=== PATIENT | male | born 1940 | race Caucasian/White ===

== ENCOUNTER 2019-05-13 02:07 | Inpatient (IN) | payer OTHER, BC ==
[~2019-05-13] VITALS: Ht 170.2 cm; Wt 93.4 kg
[2019-05-13 02:07] VITALS: BP_SYST 136
--- NOTE | 2019-05-13 02:10 | NUR ---
Patient to ER bed 2 to gown for evaluation. Side rails up.
[2019-05-13] MEDS ORDERED: IPRATROPIUM/ALBUTEROL SULFATE 3 ML AMPUL.NEB (DUONEB) INH ONE (02:15)
[2019-05-13] MEDS ORDERED: NACL 0.9% 1,000 ML IV ONE (02:15)
--- NOTE | 2019-05-13 02:20 | NUR ---
AWAKE , ALERT. PT STATES THAT HE HAS BEEN HAVING INCREASE O SHORTNESS OF BREATH X 2DAYS. HE TAKES O2 AT HOME 2L/MIN. OCCASIONAL MOIST PRODUCTIVE COUGH NOTED. ACCOMPANIED BY .
[2019-05-13 02:50] LABS: EOSINOPHILS # (AUTO) 0.1 K/uL (0.0-0.4); EOSINOPHILS % (AUTO) 0.5 % (0.0-4.0); HEMATOCRIT 49.4 % (36-54); MEAN CORPUSCULAR HEMOGLOBIN 32 pg (27-31); MEAN CORPUSCULAR HGB CONC 34 % (32-36); MEAN CORPUSCULAR VOLUME 94 fL (79.0-98.0)
[2019-05-13 02:54] LABS: ANION GAP 6 (5-15); CHLORIDE 103 mmol/L (98-107); CREATININE 1.21 mg/dL (0.55-1.30); GLUCOSE 125 mg/dL (70-99); POTASSIUM 3.7 mmol/L (3.5-5.1); SODIUM SERUM 135 mmol/L (136-145); UREA NITROGEN, BLOOD 26 mg/dL (8-21)
[2019-05-13 02:58] LABS: ALANINE AMINOTRANSFERASE 29 U/L (12-78); ALBUMIN 3.3 g/dL (3.4-4.8); ASPARTATE AMINOTRANSFERASE 19 U/L (10-37); TOTAL BILIRUBIN 1.4 mg/dL (0.0-1.0)
[2019-05-13] MEDS ORDERED: ACETAMINOPHEN 500 MG TABLET PO ONE (03:00)
[2019-05-13] MEDS ORDERED: LEVOFLOXACIN 500 MG/D5W 100 ML IV ONE (03:00)
--- NOTE | 2019-05-13 03:00 | NUR ---
VS: 135/92, 100, 94%, 17
[2019-05-13 03:04] LABS: HEMOGLOBIN 16.9 g/dL (14.0-18.0); RED BLOOD CELL COUNT(AUTO) 5.24 MIL/uL (4.2-6.2)
[2019-05-13 03:05] LABS: BASOPHILS % (AUTO) 0.2 % (0.0-2.0); LYMPHOCYTES # (AUTO) 1.5 K/uL (1.0-5.5); LYMPHOCYTES % (AUTO) 10.2 % (20.5-51.5); MONOCYTES % (AUTO) 6.3 % (1.7-9.3); NEUTROPHILS # (AUTO) 12.4 K/uL (1.8-7.7); NEUTROPHILS % (AUTO) 82.8 % (40.0-70.0); PLATELET COUNT (AUTO) 217 K/uL (130-430); RED CELL DISTRIBUTION WIDTH 13.5 % (9.0-15.0)
--- NOTE | 2019-05-13 03:29 | NUR ---
Patient will be admitted to care of Dr. Meraz. Admitted to Tele unit. Pt is an ER hold till further notice. Belongings list completed. Complete and up to date summary report printed. SBAR report to be given at bedside with opportunity for questions.
[2019-05-13] MEDS ORDERED: ACETAMINOPHEN 325 MG TABLET PO PRN (03:30)
[2019-05-13] MEDS ORDERED: NACL 0.9% 1,000 ML IV SCH (04:00)
--- NOTE | 2019-05-13 04:00 | NUR ---
VS: 124/65, 86, 21, 93%.
--- NOTE | 2019-05-13 05:00 | NUR ---
RESTING. DENIES DISTRESS. ATTEMTED TO URINATE, STOOD AT [facility] SIDE. UNABLE TO URINATE. BACK TO BED WITHOUT INCIDENCE.
--- NOTE | 2019-05-13 05:01 | NUR ---
VS: 99.3, 110/70, 88, 98%, 22.
[2019-05-13] MEDS ORDERED: methylPREDNISolone SOD SUCC/PF 62.5 MG/ML VIAL IVP SCH (06:00)
[2019-05-13] MEDS: IPRATROPIUM/ALBUTEROL SULFATE 3 ML AMPUL.NEB (DUONEB) INH SCH ×3 (06:42→19:50)
--- NOTE | 2019-05-13 07:15 | NUR ---
Report from delonte CHOWDARY
--- NOTE | 2019-05-13 07:45 | NUR ---
Respiratory at bedside
--- NOTE | 2019-05-13 09:10 | NUR ---
Patient will be admitted to care of Dr. Meraz. Admitted to tele unit. Will go to [id number] . Belongings list completed. Complete and up to date summary report printed. SBAR report to be given at bedside with opportunity for questions. Transfer to Tele via ACLS protocol. Licensed nurse present. IV present no signs or symptoms of infiltration.
--- NOTE | 2019-05-13 09:27 | NUR ---
ADMISSION NOTE Received patient from ER via darrian, received report from RANDY CHOWDARY. Patient admitted with diagnosis of PNEUMONIA. Patient oriented to hospital routine, call light, toileting and safety-patient verbalized understanding.
--- NOTE | 2019-05-13 09:40 | NUR ---
Pulmo consult called: for Dr. Menendez, regarding pneumonia, ordered by Dr. Meraz, spoke with Christine.
[2019-05-13 09:41] VITALS: BP_SYST 149
[2019-05-13] MEDS ORDERED: LISINOPRIL 5 MG TABLET PO ONE (10:15)
[2019-05-13] MEDS ORDERED: METOPROLOL TARTRATE 25 MG TABLET PO ONE (10:15)
[2019-05-13] MEDS ORDERED: POTASSIUM CHLORIDE 20 MEQ TAB.PRT.SR PO ONE (10:15)
[2019-05-13] MEDS ORDERED: IPRATROPIUM/ALBUTEROL SULFATE 3 ML AMPUL.NEB (DUONEB) INH PRN (10:15)
[2019-05-13] MEDS ORDERED: FUROSEMIDE 20 MG/2 ML VIAL IVP ONE (10:15)
[2019-05-13 10:17] LABS: BILIRUBIN,URINE NEGATIVE (NEGATIVE); BLOOD, URINE NEGATIVE (NEGATIVE); CLARITY/URINE CLEAR (CLEAR); COLOR,URINE YELLOW (YELLOW); GLUCOSE,URINE NEGATIVE (NEGATIVE); KETONES,URINE NEGATIVE (NEGATIVE); LEUKOCYTE ESTERASE ,URINE TRACE (NEGATIVE); NITRITE, URINE NEGATIVE (NEGATIVE); PH,URINE 5.5 (5.0-8.0); PROTEIN URINE TRACE (NEGATIVE)
--- NOTE | 2019-05-13 10:22 | NUR ---
Cardiac consult called: for Dr. Rosario, regarding CHF, ordered by Dr. Meraz, spoke with
[2019-05-13] MEDS ORDERED: TAMSULOSIN HCL 0.4 MG CAP PO ONE (10:45)
[2019-05-13] MEDS ORDERED: OSELTAMIVIR PHOSPHATE 75 MG CAPSULE PO ONE (10:45)
--- NOTE | 2019-05-13 10:50 | NUR ---
Opening notes, Received pt from, ER. pt is aao x3, name, place, event. pt is legally blind , only able to see movement on tv screen. pt kept on Droplet Isolation for INfluenze B. Dr Meraz was here and seen patient. pt assist to bathroom to void and back to bed, pt needs assist to ambulate. pt educated on the use of call light and tv and bed control. encouraged to call for assistance to bath room. urinal provided. safety precaution in place. yellow socks , bed alarm on. will cont to monitor.
[2019-05-13 10:51] LABS: BACTERIA,URINE FEW /HPF (None Seen); MUCUS,URINE 1+ /LPF (None Seen); RBC,URINE 0-3 /HPF (0-3); YEAST,URINE Few /HPF (None Seen)
[2019-05-13 11:02] LABS: EOSINOPHILS % (AUTO) 0.1 % (0.0-4.0); HEMATOCRIT 48.7 % (36-54); HEMOGLOBIN 16.5 g/dL (14.0-18.0); LYMPHOCYTES # (AUTO) 0.4 K/uL (1.0-5.5); MEAN CORPUSCULAR HEMOGLOBIN 32 pg (27-31); MEAN CORPUSCULAR HGB CONC 34 % (32-36); MEAN CORPUSCULAR VOLUME 95 fL (79.0-98.0); MONOCYTES # (AUTO) 0.2 K/uL (0.0-1.0); MONOCYTES % (AUTO) 1.7 % (1.7-9.3); NEUTROPHILS % (AUTO) 95.2 % (40.0-70.0); PLATELET COUNT (AUTO) 197 K/uL (130-430); RED BLOOD CELL COUNT(AUTO) 5.15 MIL/uL (4.2-6.2); RED CELL DISTRIBUTION WIDTH 13.4 % (9.0-15.0); WHITE BLOOD COUNT (AUTO) 14.7 K/uL (4.8-10.8)
[2019-05-13 11:14] LABS: ANION GAP 7 (5-15); CALCIUM 8.6 mg/dL (8.4-11.0); CHLORIDE 103 mmol/L (98-107); GLUCOSE 200 mg/dL (70-99); POTASSIUM 4.5 mmol/L (3.5-5.1); SODIUM SERUM 137 mmol/L (136-145); UREA NITROGEN, BLOOD 24 mg/dL (8-21)
[2019-05-13] MEDS: LEVOFLOXACIN 500 MG/D5W 100 ML IV SCH (11:26)
--- NOTE | 2019-05-13 11:34 | NUR ---
pt am meds offered and taken. pt able to swallow pills whole but one or 2 at a time.
[2019-05-13 11:54] VITALS: BP_SYST 149
--- NOTE | 2019-05-13 12:00 | NUR ---
pt assisted by enmanuel francisco to bathroom.
[2019-05-13 12:38] VITALS: BP_SYST 160
--- NOTE | 2019-05-13 14:52 | NUR ---
PT IN BED, RESTING, NO C/O PAIN , NO SOB. PT VOIDED USING THE URINAL. WILL CONTINUE TO MONITOR.
[2019-05-13 16:31] VITALS: BP_SYST 154
--- NOTE | 2019-05-13 16:58 | NUR ---
PT IN BED, RESTING, EYES CLOSED. NO S/S OF PAIN, NO RESP DISTRESS.
--- NOTE | 2019-05-13 17:38 | NUR ---
dr guevara here and seen and spoke with pt at bedside.
--- NOTE | 2019-05-13 18:19 | NUR ---
CLOSING NOTES, PATIENT BP SLIGHTLY ELEVATED, PT ON BP MEDICATIONS, PT KEPT ON DROPLET PRECAUTION. PT ASSISTED TO THE BATHROOM , PT IS STANDBY ASSIST. WITH MIN ASSIST FROM BED TO STANDING. ALL MEDS OFFERED AND TAKEN, ALL NEEDS ATTENDED TO. WILL ENDORSE TO NIGHT NURSE.
--- NOTE | 2019-05-13 19:30 | NUR ---
Opening notes, Received care of pt and sbar report. Pt is aao x3, name, place, event. Pt is legally blind, safety precautions discussed. Pt kept on Droplet Isolation for Influenza B. Pt educated on the use of call light and tv and bed control. Pt encouraged to call for assistance to bath room. urinal provided. Safety precautions are in place. yellow socks , bed alarm on, call light is with pt. will cont to monitor.
[2019-05-13 20:00] VITALS: BP_SYST 147
[2019-05-13] MEDS: OSELTAMIVIR PHOSPHATE 75 MG CAPSULE PO SCH (20:34)
[2019-05-13] MEDS: METOPROLOL TARTRATE 25 MG TABLET PO SCH (20:37)
[2019-05-13] MEDS: APIXABAN 2.5 MG TABLET PO SCH (20:38)
--- NOTE | 2019-05-13 20:38 | NUR ---
MEDICATION PASS SCHEDULED MEDICATIONS ADMINISTERED ORDERED. MEDICATION ACTIONS AND POTENTIAL SIDE EFFECTS DISCUSSED. PT VERBALIZED UNDERSTANDING. VSS. NO S/S OF ACUTE DISTRESS. SAFETY AND ISOLATION PRECAUTIONS MAINTAINED. WILL MONITOR.
[2019-05-13] MEDS ORDERED: FUROSEMIDE 20 MG TABLET PO SCH (21:00)
--- NOTE | 2019-05-13 22:30 | NUR ---
AMBULATED TO RESTROOM WITH PRIMARY NURSE ASSIST. PT NOTED TO HAVE STEADY GAIT. PT RETURNED TO BED WITH NO S/S OF ACUTE DISTRESS. SAFETY PRECAUTIONS MAINTAINED. ISOLATION PRECAUTIONS ARE IN PLACE. WILL MONITOR.
[2019-05-14 00:30] VITALS: BP_SYST 144
--- NOTE | 2019-05-14 00:30 | NUR ---
RESTING PT RESTING IN BED, NO S/S OF ACUTE DISTRESS, BREATHING IS UNLABORED TO O2 VIA NC AT 2L. NO SIGN OF PAIN OR DISCOMFORT. SAFETY AND FALL PRECAUTIONS ARE IN PLACE. DROPLET PRECAUTIONS MAINTAINED. WILL MONITOR.
[2019-05-14] MEDS: IPRATROPIUM/ALBUTEROL SULFATE 3 ML AMPUL.NEB (DUONEB) INH SCH ×4 (00:41→19:32)
--- NOTE | 2019-05-14 02:45 | NUR ---
RN ROUNDS: PT RESTING IN BED, NO S/S OF ACUTE DISTRESS, BREATHING IS UNLABORED TO O2 VIA NC AT 2L. NO SIGN OF PAIN OR DISCOMFORT. SAFETY AND FALL PRECAUTIONS ARE IN PLACE. DROPLET PRECAUTIONS MAINTAINED. WILL MONITOR.
--- NOTE | 2019-05-14 04:22 | NUR ---
ROUNDS: PT RESTING IN BED, NO S/S OF ACUTE DISTRESS, BREATHING IS UNLABORED TO O2 VIA NC AT 2L. NO SIGN OF PAIN OR DISCOMFORT AT THIS TIME. SAFETY AND FALL PRECAUTIONS ARE IN PLACE. DROPLET PRECAUTIONS MAINTAINED. WILL MONITOR.
[2019-05-14 06:28] LABS: HEMATOCRIT 45.7 % (36-54); HEMOGLOBIN 15.3 g/dL (14.0-18.0); LYMPHOCYTES # (AUTO) 1.1 K/uL (1.0-5.5); LYMPHOCYTES % (AUTO) 8.4 % (20.5-51.5); MEAN CORPUSCULAR HEMOGLOBIN 32 pg (27-31); MEAN CORPUSCULAR HGB CONC 34 % (32-36); MEAN CORPUSCULAR VOLUME 94 fL (79.0-98.0); MONOCYTES # (AUTO) 0.6 K/uL (0.0-1.0); MONOCYTES % (AUTO) 4.8 % (1.7-9.3); NEUTROPHILS # (AUTO) 11.2 K/uL (1.8-7.7); NEUTROPHILS % (AUTO) 86.8 % (40.0-70.0); PLATELET COUNT (AUTO) 213 K/uL (130-430); RED BLOOD CELL COUNT(AUTO) 4.86 MIL/uL (4.2-6.2); RED CELL DISTRIBUTION WIDTH 13.3 % (9.0-15.0); WHITE BLOOD COUNT (AUTO) 12.9 K/uL (4.8-10.8)
--- NOTE | 2019-05-14 06:30 | NUR ---
Closing notes, Pt is aao x3, name, place, event. Pt is legally blind, safety precautions discussed. Pt kept on Droplet Isolation for Influenza B. Pt educated on the use of call light and tv and bed control. Pt encouraged to call for assistance to bath room. urinal provided. Safety precautions are in place. yellow socks , bed alarm on, call light is with pt. Will endorse to day shift RN.
[2019-05-14 06:49] LABS: ANION GAP 7 (5-15); CALCIUM 8.3 mg/dL (8.4-11.0); CHLORIDE 106 mmol/L (98-107); CREATININE 1.18 mg/dL (0.55-1.30); GLUCOSE 156 mg/dL (70-99); POTASSIUM 3.8 mmol/L (3.5-5.1); SODIUM SERUM 139 mmol/L (136-145); UREA NITROGEN, BLOOD 29 mg/dL (8-21)
--- NOTE | 2019-05-14 07:45 | NUR ---
am notes received pt in bed . a/ox4. pt is legally blind. denies any pain or sob at this time. res even and unlabored. vitals stable. call light within reach encourged to use call light . pt verbalized understanding. safety and fall precautions in place. needs attended. will continue to monitor
[2019-05-14 07:58] VITALS: BP_SYST 149
[2019-05-14] MEDS ORDERED: FUROSEMIDE 20 MG/2 ML VIAL IVP SCH (09:00)
[2019-05-14] MEDS: OSELTAMIVIR PHOSPHATE 75 MG CAPSULE PO SCH (09:02)
[2019-05-14] MEDS: TAMSULOSIN HCL 0.4 MG CAP PO SCH (09:02)
[2019-05-14] MEDS: LISINOPRIL 5 MG TABLET PO SCH (09:02)
[2019-05-14] MEDS: POTASSIUM CHLORIDE 20 MEQ TAB.PRT.SR PO SCH (09:02)
[2019-05-14] MEDS: METOPROLOL TARTRATE 25 MG TABLET PO SCH (09:03)
[2019-05-14] MEDS: APIXABAN 2.5 MG TABLET PO SCH (09:05)
[2019-05-14] MEDS: LEVOFLOXACIN 500 MG/D5W 100 ML IV SCH (11:31)
[2019-05-14 11:40] VITALS: BP_SYST 147
--- NOTE | 2019-05-14 11:42 | NUR ---
rounds pt resting comfortably not in acute distress. vitals stable. needs attended. will continue to monitor
[2019-05-14] MEDS ORDERED: PREDNISONE 20 MG TABLET PO ONE (14:30)
[2019-05-14 16:00] VITALS: BP_SYST 145
--- NOTE | 2019-05-14 16:00 | NUR ---
rounds pt stable not in acute distress. vitals stable. need attended kept comfortable
--- NOTE | 2019-05-14 19:28 | NUR ---
closing notes pt resting comfortably. not in acute distress. .no s/s of pain or distress noted.report given to night nurse
[2019-05-15] MEDS: APIXABAN 2.5 MG TABLET PO SCH ×3 (00:44→22:44)
[2019-05-15] MEDS: METOPROLOL TARTRATE 25 MG TABLET PO SCH ×2 (00:45→10:07)
[2019-05-15] MEDS: IPRATROPIUM/ALBUTEROL SULFATE 3 ML AMPUL.NEB (DUONEB) INH SCH ×4 (00:45→20:30)
[2019-05-15] MEDS: PREDNISONE 20 MG TABLET PO SCH ×3 (00:46→22:46)
[2019-05-15] MEDS: OSELTAMIVIR PHOSPHATE 75 MG CAPSULE PO SCH ×3 (00:46→22:46)
[2019-05-15 00:48] VITALS: BP_SYST 149
[2019-05-15 07:21] LABS: BASOPHILS % (AUTO) 0.1 % (0.0-2.0); HEMATOCRIT 48.4 % (36-54); HEMOGLOBIN 16.1 g/dL (14.0-18.0); LYMPHOCYTES # (AUTO) 1.2 K/uL (1.0-5.5); LYMPHOCYTES % (AUTO) 7.6 % (20.5-51.5); MEAN CORPUSCULAR HEMOGLOBIN 32 pg (27-31); MEAN CORPUSCULAR HGB CONC 33 % (32-36); MEAN CORPUSCULAR VOLUME 95 fL (79.0-98.0); MONOCYTES # (AUTO) 0.7 K/uL (0.0-1.0); MONOCYTES % (AUTO) 4.7 % (1.7-9.3); NEUTROPHILS # (AUTO) 13.2 K/uL (1.8-7.7); NEUTROPHILS % (AUTO) 87.6 % (40.0-70.0); PLATELET COUNT (AUTO) 262 K/uL (130-430); RED BLOOD CELL COUNT(AUTO) 5.11 MIL/uL (4.2-6.2); RED CELL DISTRIBUTION WIDTH 13.6 % (9.0-15.0); WHITE BLOOD COUNT (AUTO) 15.1 K/uL (4.8-10.8)
[2019-05-15 07:55] LABS: ANION GAP 9 (5-15); CALCIUM 8.9 mg/dL (8.4-11.0); CHLORIDE 104 mmol/L (98-107); CREATININE 1.21 mg/dL (0.55-1.30); GLUCOSE 140 mg/dL (70-99); POTASSIUM 4.4 mmol/L (3.5-5.1); SODIUM SERUM 139 mmol/L (136-145); UREA NITROGEN, BLOOD 34 mg/dL (8-21)
[2019-05-15 08:00] VITALS: BP_SYST 145
[2019-05-15 09:39] VITALS: BP_SYST 149
[2019-05-15] MEDS: POTASSIUM CHLORIDE 20 MEQ TAB.PRT.SR PO SCH (10:06)
[2019-05-15] MEDS: TAMSULOSIN HCL 0.4 MG CAP PO SCH (10:06)
[2019-05-15] MEDS: LISINOPRIL 5 MG TABLET PO SCH (10:08)
--- NOTE | 2019-05-15 10:33 | NUR ---
Nutrition Update Martin Scale 18 noted. Pt admitted for pneumonia. Diet: regular BMI: 32.4 kg/m2 RD to follow per nutrition care standards.
--- NOTE | 2019-05-15 11:52 | NUR ---
CONSULTATION PAGED/CALLED Reason for Consultation: SEPSIS Person Who was Notified: SPOKE WITH KALYAN FROM OFFICE Consulting Physician: Drive In Theater Attendant Specialty: ID Ordering Physician:
[2019-05-15] MEDS: LEVOFLOXACIN 500 MG/D5W 100 ML IV SCH (13:59)
--- NOTE | 2019-05-15 14:04 | NUR ---
P.T. NOTES AFTER MULTIPLE ATTEMPTS PATIENT REFUSED TO BE SEEN BY P.T., STATES NOT FEELING WELL TODAY AND WOULD LIKE TO GET SOME REST.
[2019-05-15] MEDS ORDERED: FLUCONAZOLE 100 mg/ NS 50 ML IV SCH (18:30)
[2019-05-15 20:00] VITALS: BP_SYST 145
[2019-05-15] MEDS: METOPROLOL TARTRATE 50 MG TABLET PO SCH (22:46)
[2019-05-15] MEDS: AZITHROMYCIN 500 MG in NS 250 ML IV SCH (22:48)
[2019-05-16] MEDS: IPRATROPIUM/ALBUTEROL SULFATE 3 ML AMPUL.NEB (DUONEB) INH SCH ×4 (01:26→19:05)
[2019-05-16 02:19] VITALS: BP_SYST 159
--- NOTE | 2019-05-16 05:26 | NUR ---
recieved report @ the start of shift, patient, a/o/x/4, verbally responsive, respirations even and unlabored, noted cough, non productive,HOB erlevated, sob on excertion,, droplet isolation for flu A&B,, able to stand @ bedside to urinate in urinal, urine clear yellow, rested quietly during the shift, @ bedside, will continue to monitor closely for any resp/cardiac distress
--- NOTE | 2019-05-16 08:00 | NUR ---
received awake and in no c/o discomfort.vss resp even and unlabored.remains on droplet iso uses urinal.taking diet well.continue to monitor call potter in place
[2019-05-16] MEDS: METOPROLOL TARTRATE 50 MG TABLET PO SCH ×2 (09:00→21:21)
[2019-05-16] MEDS: TAMSULOSIN HCL 0.4 MG CAP PO SCH (09:00)
[2019-05-16] MEDS: LISINOPRIL 5 MG TABLET PO SCH (09:01)
[2019-05-16] MEDS: POTASSIUM CHLORIDE 20 MEQ TAB.PRT.SR PO SCH (09:01)
[2019-05-16] MEDS: PREDNISONE 20 MG TABLET PO SCH ×2 (09:01→21:22)
[2019-05-16] MEDS: OSELTAMIVIR PHOSPHATE 75 MG CAPSULE PO SCH ×2 (09:01→21:22)
[2019-05-16] MEDS: APIXABAN 2.5 MG TABLET PO SCH (09:04)
[2019-05-16 09:52] VITALS: BP_SYST 124
[2019-05-16 12:39] VITALS: BP_SYST 119
--- NOTE | 2019-05-16 13:31 | NUR ---
Discharge Plan Assessment done MOLD DESIGN ENGINEER met with patient and at bedside. Patient is mostly independent at home, but is blind so needs assistance outside the home. Patient's stated she wants to participate in all decision making. She is awaiting a call from Dr Meraz. She agrees with acute rehab ([facility]) or SNF for a short time to improve patient's strength or possible IV medications. Wants to discuss with doctor further. Agreeable also to home health. Will await further orders and remain available. Discussed with VON Cornejo and ZOILA Coordinator Kaitlyn.
--- NOTE | 2019-05-16 13:45 | NUR ---
DC Planning: s/w with pt's spouse/Vanessa # [phone] regarding dcp to snf vs home with HH. Vanessa requested snf in [facility] and given choices: [facility] [place]. She also agreed with any HH agency Per Vanessa, the pt will be home alone for 6 hrs/day while she is working. The pt is able to go up 8 steps to 2nd floor bed room. [facility] provides oxygen concentrator which the pt uses only at night and a portable tank (not using for many months). The O2 concentrator set up in between up stair and down stair bed room with 50 feet oxygen cannula lines to both locations. The pt already has FWW and a cane. He will need a nebulizer machine upon discharge.
[2019-05-16] MEDS: FLUCONAZOLE 100 mg/ NS 50 ML IV SCH (14:58)
[2019-05-16] MEDS: D5LR 1,000 ML IV SCH (14:58)
[2019-05-16 16:06] VITALS: BP_SYST 116
--- NOTE | 2019-05-16 16:44 | NUR ---
DC Planning: [facility]n: Steven fax# [phone], tel [phone] . Per Steven, he will provide the nebulizer machine as long as pt and family can provide own prescriptions. Steven will call Ksenia to arrange the machine. DCP/ please check with Steven to confirm the nebulizer arrangement and whether [facility] is accepting the pt. Addendum: 05/16/19 at 1713 by Chantal Spence RN >> Called back : per Steven the pt is accepted. DCP please notify him time pt is dc home. Addendum: 05/16/19 at 1718 by Chantal Spence RN Steven tel # [phone]
--- NOTE | 2019-05-16 17:22 | NUR ---
noted to have red urine in urinal with no clots dr allison musa.no c/o pain vss resp even and unlabored.up amb in room will continue to monitor.
--- NOTE | 2019-05-16 17:45 | NUR ---
dr cooper returned call and ordered pt to start on tele and labs for am and stop blood thinners. and tele applied
--- NOTE | 2019-05-16 18:28 | NUR ---
tele controlled afib no c/o pain taking diet well and voiding still light red color.continue to monitor call potter in place.
--- NOTE | 2019-05-16 19:13 | NUR ---
report to night filler fauzia beavers
--- NOTE | 2019-05-16 19:20 | NUR ---
OPENING NOTES Receive report from morning shift nurse. Patient AOx4, at bed side. No signs of respiratory distress noted. Denies pain and discomfort at this time. HOB raised. Urinal at bedside, clean and empty. On 2L of oxygen via Nasal cannula, attached and secured. IV antibiotic infusing well, patency noted. Call light within reach, patient educated to use call light when assistance is needed, patient verbalized understanding. Bed locked and in lowest position. bed alarm on. Safety precautions in place. Will continue to monitor patient.
[2019-05-16] MEDS: AZITHROMYCIN 500 MG in NS 250 ML IV SCH (19:23)
--- NOTE | 2019-05-16 21:22 | NUR ---
MED PASS Due medication given at this time. No signs of respiratory distress noted. Denies pain and discomfort at this time. Safety precautions in place. Will continue to monitor.
[2019-05-16 21:45] VITALS: BP_SYST 152
--- NOTE | 2019-05-16 23:30 | NUR ---
RN ROUNDS PATIENT ASLEEP AT THIS TIME. NO SIGNS OF RESPIRATORY DISTRESS AND DISCOMFORT NOTED. BREATHING EVEN AND UNLABORED. ON 2L OF OXYGEN VIA NASAL CANNULA, ATTACHED AND SECURED. HOB RAISED. CALL LIGHT WITHIN REACH . SAFETY PRECAUTIONS IN PLACE. WILL CONTINUE TO MONITOR.
[2019-05-17 00:59] VITALS: BP_SYST 140
[2019-05-17] MEDS: IPRATROPIUM/ALBUTEROL SULFATE 3 ML AMPUL.NEB (DUONEB) INH SCH ×3 (01:10→13:50)
--- NOTE | 2019-05-17 02:05 | NUR ---
NOTE Patient awake at this time. No signs of respiratory distress noted. Denies pain and discomfort at this time. Bleeding in urine, noted. MD aware since morning. Safety precautions in place. Will continue to monitor.
--- NOTE | 2019-05-17 04:30 | NUR ---
RN ROUNDS PATIENT ASLEEP AT THIS TIME. NO SIGNS OF RESPIRATORY DISTRESS AND DISCOMFORT NOTED. BREATHING EVEN AND UNLABORED. HOB RAISED. ON 2L OF OXYGEN VIA NASAL, CANNULA, ATTACHED AND SECURED. SAFETY PRECAUTIONS IN PLACE. WILL CONTINUE TO MONITOR.
[2019-05-17] MEDS: D5LR 1,000 ML IV SCH (06:21)
--- NOTE | 2019-05-17 06:58 | NUR ---
CLOSING NOTES PATIENT AWAKE AOX3. NO SIGNS OF RESPIRATORY DISTRESS AND DISCOMFORT NOTED. BREATHING EVEN AND UNLABORED. ON 2L OF OXYGEN VIA NASAL CANNULA. IVF INFUSING WELL,PATENCY NOTED. CALL LIGHT WITHIN REACH. SAFETY PRECAUTIONS IN PLACE. BED LOCKED AND LOWEST POSITION. ALL NEEDS MET THROUGHOUT THE SHIFT. WILL CONTINUE TO MONITOR UNTIL ENDORSE TO ONCOMING SHIFT NURSE FOR CONTINUITY OF CARE.
[2019-05-17 07:32] VITALS: BP_SYST 142
--- NOTE | 2019-05-17 07:32 | NUR ---
INITIAL ROUNDS Received pt AAOx3, no s/s resp distress, no c/o pain or discomfort. Pt on Droplets precautions for Influenza B +. IVF infusing well at ordered rate with no s/s infiltration to site. Plan of care for the day reviewed with pt-pt verbalized his understanding. Pain management, disease process, skin and safety discussed with pt-teach back done. Side rails up x3, bed alarm on and room across form nursing station for safety. Call light within reach.
[2019-05-17 07:55] LABS: ALANINE AMINOTRANSFERASE 73 U/L (12-78); ANION GAP 7 (5-15); ASPARTATE AMINOTRANSFERASE 28 U/L (10-37); CALCIUM 8.7 mg/dL (8.4-11.0); CHLORIDE 102 mmol/L (98-107); CREATININE 1.11 mg/dL (0.55-1.30); GLUCOSE 132 mg/dL (70-99); POTASSIUM 4.7 mmol/L (3.5-5.1); SODIUM SERUM 138 mmol/L (136-145); TOTAL BILIRUBIN 0.7 mg/dL (0.0-1.0); UREA NITROGEN, BLOOD 29 mg/dL (8-21)
--- NOTE | 2019-05-17 07:55 | NUR ---
PHYSICAL THERAPY CO-SIGN The Physical Therapy Progress Notes documented by Street Light Servicer Helper have been reviewed. Reviewed/Co-Signed by: Silvano Timmons PT Documentation Done by: Raul Hastings PTA Addendum: 05/17/19 at 0756 by Silvano Timmons PT Amended: Links added.
[2019-05-17 08:00] LABS: HEMATOCRIT 50.6 % (36-54); HEMOGLOBIN 16.9 g/dL (14.0-18.0); MEAN CORPUSCULAR HEMOGLOBIN 32 pg (27-31); MEAN CORPUSCULAR HGB CONC 33 % (32-36); MEAN CORPUSCULAR VOLUME 95 fL (79.0-98.0); PLATELET COUNT (AUTO) 278 K/uL (130-430); RED CELL DISTRIBUTION WIDTH 13.6 % (9.0-15.0)
[2019-05-17 08:51] LABS: ATYPICAL LYMPHOCYTES % 0 % (0-0); BAND % (MANUAL) 2 % (0-6); BASOPHILS % (MANUAL) 0 % (0-2); EOSINOPHILS % (MANUAL) 0 % (0-7); LYMPHOCYTES % (MANUAL) 15 % (20-46); MONOCYTES % (MANUAL) 8 % (0-11)
[2019-05-17] MEDS: PREDNISONE 20 MG TABLET PO SCH (09:17)
[2019-05-17] MEDS: LISINOPRIL 5 MG TABLET PO SCH (09:17)
[2019-05-17] MEDS: POTASSIUM CHLORIDE 20 MEQ TAB.PRT.SR PO SCH (09:18)
[2019-05-17] MEDS: METOPROLOL TARTRATE 50 MG TABLET PO SCH (09:18)
[2019-05-17] MEDS: TAMSULOSIN HCL 0.4 MG CAP PO SCH (09:18)
[2019-05-17] MEDS: OSELTAMIVIR PHOSPHATE 75 MG CAPSULE PO SCH (09:18)
--- NOTE | 2019-05-17 11:02 | NUR ---
ROUNDS/ Pt sitting up in bed with no s/s resp distress, no c/o pain or discomfort. Pt's at bedside and stated she wants Dr. Meraz to call her with any new updates. No changes, call light within reach.
--- NOTE | 2019-05-17 11:21 | NUR ---
Discharge Planning: ALYSON spoke to Silvia at [facility] [phone] Home Health accepted. Per [facility] sent doctor form fro nebulizer, and CAROL walker will be ordered. ZOILAP to follow up. Addendum: 05/17/19 at 1556 by Kaitlyn Villalobos DP ALYSON spoke to Silvia at [facility] [phone] [facility] Nebulizer, FWW and bedside commode will be delivered to home tomorrow per request. ZOILAP made nurse aware.
--- NOTE | 2019-05-17 12:14 | NUR ---
Discharge Planning Spoke with patient's this am. HH and DME are being arranged. She will go to work and await information on discharge. Later spoke with Dr Meraz, who will discharge patient home today. Patient may have difficulty making it up the stairs. Phoned , , and left a voicemail about discharge and possible solution to the stairs in the home, ie [facility] [employer] loan of a hospital bed or lift to go up the stairs. Addendum: 05/17/19 at 1243 by Annabel Bradford LCSW returned the call. Told her she can scrap picker patient any time today. She stated she will cope with patient with no hospital bed for now. Will have another plan if there is a retirement situation. She had a question about the hematuria. Asked Gayle CHOWDARY to call to discuss. Kaitlyn, Field Support Engineer, stated all home health ([facility]) and DME(nebulizer and FWW) is arranged.
[2019-05-17 12:40] VITALS: BP_SYST 143
[2019-05-17] MEDS ORDERED: IPRA3AMP9 INH ×2 (13:00→13:17)
[2019-05-17] MEDS ORDERED: PRED20TA PO (13:00)
[2019-05-17] MEDS ORDERED: LISI-209 PO ×2 (13:00→13:17)
[2019-05-17] MEDS ORDERED: APIXABAN 2.5 MG TABLET PO ONE (13:00)
[2019-05-17] MEDS ORDERED: METO-442 PO ×2 (13:00→13:17)
[2019-05-17] MEDS ORDERED: APIX2.5T PO (13:00)
[2019-05-17] MEDS ORDERED: CLAR250T12 PO ×2 (13:00→13:17)
[2019-05-17] MEDS ORDERED: TAMS-11 PO ×2 (13:06→13:17)
[2019-05-17] MEDS: FLUCONAZOLE 100 mg/ NS 50 ML IV SCH (14:01)
[2019-05-17 14:20] LABS: BILIRUBIN,URINE NEGATIVE (NEGATIVE); BLOOD, URINE 3+ (NEGATIVE); CLARITY/URINE SLIGHTLY CLOUDY (CLEAR); COLOR,URINE YELLOW (YELLOW); GLUCOSE,URINE NEGATIVE (NEGATIVE); KETONES,URINE NEGATIVE (NEGATIVE); LEUKOCYTE ESTERASE ,URINE NEGATIVE (NEGATIVE); NITRITE, URINE NEGATIVE (NEGATIVE); PH,URINE 5.5 (5.0-8.0); PROTEIN URINE NEGATIVE (NEGATIVE); UROBILINOGEN,URINE 0.2 (0.2-1.0)
[2019-05-17 14:29] LABS: BACTERIA,URINE FEW /HPF (None Seen); WBC,URINE 0-3 /HPF (0-3); YEAST,URINE Rare /HPF (None Seen)
[2019-05-17 14:31] LABS: HYALINE CASTS, URINE 0-10 /LPF (None Seen)
[2019-05-17 16:29] VITALS: BP_SYST 140
--- NOTE | 2019-05-17 17:20 | NUR ---
ROUNDS/ Pt sitting up in bed with no s/s resp distress, no c/o pain or discomfort. Spoke with pt's Vanessa and she will nut picker the pt after 6 pm. All precautions remain in place. Call light within reach.
[2019-05-17 17:35] VITALS: BP_SYST 140
--- NOTE | 2019-05-17 18:55 | NUR ---
PATIENT DISCHARGED HOME Patient given medication reconciliation form and D/C instructions. Exit Care on PNA and Biaxin explained & provided. Patient and patient's verbalized their understanding. MD discussed with patient the results and treatment provided. Ambulatory with steady gait with assist for discharge to home. Patient in stable condition, ID band removed. IV catheter removed, intact and dressing applied, no active bleeding. Rx snt via [facility] to [facility] [address]. Patient educated on pain management. All belongings sent with patient. Patient left floor via wheelchair to private vehicle in no distress.
[2019-05-17] MEDS ORDERED: APIXABAN 2.5 MG TABLET PO SCH (21:00)
--- NOTE | 2019-05-18 10:36 | NUR ---
MADE A F/U APPOINTMENT WITH PRIMARY MD DR SOHEILA GARDNER FOR Apr AT 1445. SPOKE TO NATHAN.
--- NOTE | 2019-05-22 16:12 | NUR ---
Discharge Follow Up Phone Call Phoned patient, , and spoke with patient's , Vanessa. She stated that [facility] had started services and delivered the equipment. It went well. Vanessa stated they were managing okay at home and will attend the scheduled follow up appointment with Dr Elliott on 05/23/19 14:45. Prescriptions were filled and taken as directed. No questions or concerns.
== END 2019-05-17 18:55 | disposition home health service (06) | DRG 871 ==
LOC: SED 02:07 → STU 03:24 → SMU 09:12 → STU 09:28 → SMU 05-14 19:06 → STU 05-16 19:02
PROVIDERS: ADMIT Internal Medicine; ATTEND Internal Medicine
DX: A41.9 Sepsis, unspecified organism (principal); J10.08 Influenza due to other identified influenza virus with other specified pneumonia; G93.41 Metabolic encephalopathy; J96.21 Acute and chronic respiratory failure with hypoxia; I50.43 Acute on chronic combined systolic (congestive) and diastolic (congestive) heart failure; B37.49 Other urogenital candidiasis; E44.1 Mild protein-calorie malnutrition; J44.1 Chronic obstructive pulmonary disease with (acute) exacerbation; I11.0 Hypertensive heart disease with heart failure; I48.91 Unspecified atrial fibrillation; F03.90 Unspecified dementia, unspecified severity, without behavioral disturbance, psychotic disturbance, mood disturbance, and anxiety; F17.200 Nicotine dependence, unspecified, uncomplicated; K74.60 Unspecified cirrhosis of liver; H54.8 Legal blindness, as defined in USA; E66.9 Obesity, unspecified; Z68.32 Body mass index [BMI] 32.0-32.9, adult
CPT/HCPCS: 36415; 36600; 71045; 71270-TC; 76700-TC; 80048; 80053; 81000-TC; 82803-TC; 83605; 83735-TC; 83880; 84484; 85007; 85025; 85027; 86710; 87040-TC; 87086; 93306; 94640; 94760; 96361; 96365; 96375; 97110-GP; 97116-GP; 97530-GP; 99285; G0378; G9035; J0456; J1450; J1940; J1956; J2930; J7030; J7050; J7120; J7512; J7620